=== PATIENT | female | born 1965 | race Caucasian/White ===

== ENCOUNTER 2017-02-19 10:19 | Emergency (ER) | payer OTHER ==
[2017-02-19] MEDS ORDERED: ACETAMINOPHEN 500 MG TAB PO ONE (10:29)
[2017-02-19] MEDS ORDERED: AZITHROMYCIN IV 500 MG in NS 250 ML IV ONE (10:51)
[2017-02-19] MEDS ORDERED: NS 1,000 ML IV ONE ×2 (10:51→11:53)
[2017-02-19 11:10] LABS: PLATELET COUNT 101 10^3/uL (150-400)
[2017-02-19] MEDS ORDERED: IBUPROFEN 600 MG TAB PO ONE (11:44)
[2017-02-19 11:50] VITALS: RESP 16
--- NOTE | 2017-02-19 13:23 | EDPHY ---
H & P Stated Complaint: Sinus congestion, fever, productive cough, fatigue x 5 days. Time Seen by Provider: 02/19/17 10:32 HPI/ROS: This patient presents 5 day history of coughing that has been nonproductive dry cough. She had coryza associated with her symptoms and fevers to 101 Sunday that improved for couple days prior to having recurrent fever up to 102.5 at home. She reports associated fatigue. She has retrobulbar headaches that improved with [id number] antipyretics as well and initially had a sore throat that has since resolved. Her brought her in by private vehicle. ROS: Constitutional: As per HPI HEENT: Mild ear pressure bilaterally. No other complaints. Pulmonary: No pleuritic pain or dyspnea. Cardiovascular: No chest pain heart palpitations or lightheadedness. GI: No nausea vomiting or abdominal pain. She does have decreased appetite. : No complaints Integumentary: No skin rash Endocrine: No complaints Musculoskeletal: Myalgias diffusely. Complete review of symptoms otherwise negative Source: Patient, Family (Patient's also provides history.) Exam Limitations: No limitations - Personal History LMP (Females 10-55): Post Menopausal Current Tetanus Diphtheria and Acellular Pertussis (TDAP): Yes Tetanus Vaccine Date: within 10 years - Medical/Surgical History Hx Asthma: No Hx Chronic Respiratory Disease: No Hx Diabetes: No Hx Cardiac Disease: No Hx Renal Disease: No Hx Cirrhosis: No Hx Alcoholism: No Hx HIV/AIDS: No Hx Splenectomy or Spleen Trauma: No Other PMH: Renal mediated HTN, hyperthyroidism. APPENDECTOMY CSECTION - Family History Significant Family History: No pertinent family hx - Social History Smoking Status: Never smoked Alcohol Use: Occasionally Drug Use: None - Physical Exam Exam: General Appearance: Alert, no distress. Eyes: Pupils equal and round no pallor or injection. ENT, Mouth: Mucous membranes dry. Ears: Clear bilaterally oropharynx: Clear with no erythema or exudates. No dysphonia. Respiratory: Mild rales at the bases that clear with deep breaths. Otherwise clear to auscultation bilaterally. Cardiovascular: Tachycardic with no murmur gallop or rub Gastrointestinal: Abdomen is soft and nontender, no masses, bowel sounds normal. Back: No CVA tenderness Neurological: GCS 15 with no focal deficits. Skin: Warm and dry, no rashes. Musculoskeletal: Neck is supple nontender. Extremities are symmetrical, full range of motion. Psychiatric: Mood and affect are normal DIFFERENTIAL DIAGNOSIS: After history and physical exam differential diagnosis was considered for influenza, pneumonia, bronchitis, bronchopneumonia Constitutional: Initial Vital Signs Temperature (C) 39.1 C H 02/19/17 10:23 Heart Rate 113 H 02/19/17 10:23 Respiratory Rate 18 02/19/17 10:23 Blood Pressure 131/72 H 02/19/17 10:23 O2 Sat (%) 94 02/19/17 10:23 O2 Delivery Mode Room Air Allergies/Adverse Reactions: Penicillins Allergy (Verified 02/19/17 10:28) Pt reports rash Sulfa (Sulfonamide Antibiotics) Allergy (Verified 02/19/17 10:28) Pt reports rash Home Medications: Medication Instructions Recorded Lisinopril 11/22/14 Benzonatate [Tessalon Pearles (RX)] 100 - 200 mg PO TID PRN #20 cap 02/19/17 Thyroid Medication 02/19/17 Medical Decision Making - Diagnostics Imaging Results: Imaging Impressions Chest X-Ray 02/19/17 10:52 Impression: Normal chest x-ray. Two view chest x-ray: No infiltrates or other abnormalities by my interpretation ED Course/Re-evaluation: IV normal saline bolus x2 L Zithromax 500 mg p.o. after initial negative influenza test. Ibuprofen Tylenol with defervesced since. Labs: Notable for an initial elevation of her venous lactate. After 2 L her repeat lactate is normal. Basic metabolic panel is normal. Initial rapid flu was negative. This is followed up by a influenza PCR which is positive for influenza B. Discussion: Patient presents with influenza associated with dehydration. She did get a dose of Zithromax after 1st influenza test was negative but suspecting influenza PCR study was sent which is positive. I counseled patient regarding this. She met septic criteria initially but with treatment her vital signs normalized and her venous lactate resolved to normal. Patient feels well time of discharge and not think has active sepsis at this time. Chest x-ray reveals no pneumonia. I think that she is safe for discharge home. Counseled her in some detail regarding influenza answered all of her questions and her 's questions. She understands need to return should she develop any significant worsening of her symptoms despite the treatment plan. - Data Points Laboratory Results: Laboratory Results 02/19/17 11:08 02/19/17 11:08 02/19/17 02/19/17 02/19/17 12:45 11:08 11:08 WBC 7.59 10^3/uL 10^3/uL (3.80-9.50) RBC 4.75 10^6/uL 10^6/uL (4.18-5.33) Hgb 14.4 g/dL g/dL (12.6-16.3) Hct 40.9 % % (38.0-47.0) MCV 86.1 fL fL (81.5-99.8) MCH 30.3 pg pg (27.9-34.1) MCHC 35.2 g/dL g/dL (32.4-36.7) RDW 11.7 % % (11.5-15.2) Plt Count 101 10^3/uL L 10^3/uL (150-400) MPV 9.6 fL fL (8.7-11.7) Neut % (Auto) 93.7 % H % (39.3-74.2) Lymph % (Auto) 4.1 % L % (15.0-45.0) [place] % (Auto) 1.8 % L % (4.5-13.0) Eos % (Auto) 0.0 % L % (0.6-7.6) Baso % (Auto) 0.0 % L % (0.3-1.7) Nucleat RBC Rel Count 0.0 % % (0.0-0.2) Absolute Neuts (auto) 7.11 10^3/uL H 10^3/uL (1.70-6.50) Absolute Lymphs (auto) 0.31 10^3/uL L 10^3/uL (1.00-3.00) Absolute Monos (auto) 0.14 10^3/uL L 10^3/uL (0.30-0.80) Absolute Eos (auto) 0.00 10^3/uL L 10^3/uL (0.03-0.40) Absolute Basos (auto) 0.00 10^3/uL L 10^3/uL (0.02-0.10) Absolute Nucleated RBC 0.00 10^3/uL 10^3/uL (0-0.01) Immature Gran % 0.4 % % (0.0-1.1) Immature Gran # 0.03 10^3/uL 10^3/uL (0.00-0.10) VBG Lactic Acid 1.1 mmol/L D mmol/L 2.5 mmol/L H mmol/L (0.7-2.1) (0.7-2.1) Sodium Potassium Chloride Carbon Dioxide Anion Gap BUN Creatinine Estimated GFR Glucose Calcium Nasal Influenza A PCR Nasal Influenza B PCR Influenza A,B Rapid 02/19/17 02/19/17 02/19/17 11:08 10:35 10:35 WBC RBC Hgb Hct MCV MCH MCHC RDW Plt Count MPV Neut % (Auto) Lymph % (Auto) [place] % (Auto) Eos % (Auto) Baso % (Auto) Nucleat RBC Rel Count Absolute Neuts (auto) Absolute Lymphs (auto) Absolute Monos (auto) Absolute Eos (auto) Absolute Basos (auto) Absolute Nucleated RBC Immature Gran % Immature Gran # VBG Lactic Acid Sodium 135 mEq/L mEq/L (134-144) Potassium 3.6 mEq/L mEq/L (3.5-5.2) Chloride 95 mEq/L L mEq/L (97-110) Carbon Dioxide 24 mEq/l mEq/l (22-31) Anion Gap 16 mEq/L mEq/L (8-16) BUN 17 mg/dL mg/dL (7-23) Creatinine 0.9 mg/dL mg/dL (0.6-1.0) Estimated GFR > 60 Glucose 168 mg/dL H mg/dL (70-100) Calcium 8.7 mg/dL mg/dL (8.5-10.4) Nasal Influenza A PCR NEGATIVE FOR FLU A (NEGATIVE) Nasal Influenza B PCR FLU B DETECTED (NEGATIVE) Influenza A,B Rapid NEGATIVE FOR FLU (NEGATIVE) Medications Given: Discontinued Medications Acetaminophen (Tylenol) 1,000 mg PO EDNOW ONE Stop: 02/19/17 10:30 Last Admin: 02/19/17 10:37 Dose: 1,000 mg Azithromycin 500 mg/ Sodium (Chloride) 255 mls @ 255 mls/hr IV EDNOW ONE PRN Reason: Protocol Stop: 02/19/17 11:50 Last Admin: 02/19/17 11:25 Dose: 255 mls Sodium Chloride (Ns) 1,000 mls @ 0 mls/hr IV ONCE ONE; Wide Open PRN Reason: Protocol Stop: 02/19/17 10:52 Last Admin: 02/19/17 11:03 Dose: 1,000 mls Sodium Chloride (Ns) 1,000 mls @ 0 mls/hr IV ONCE ONE; Wide Open PRN Reason: Protocol Stop: 02/19/17 11:54 Last Admin: 02/19/17 11:59 Dose: 1,000 mls Ibuprofen (Motrin) 600 mg PO EDNOW ONE Stop: 02/19/17 11:45 Last Admin: 02/19/17 11:47 Dose: 600 mg Departure - Departure Disposition: Home, Routine, Self-Care Clinical Impression: Influenza B, Dehydration Condition: Good Instructions: Influenza (ED) Additional Instructions: Diagnosis: Influenza B Plan: Ibuprofen Tylenol for fevers Drink plenty fluids Avoid contact with significant numbers of people until after your fever has resolved for 24 hr more Tessalon Perles if needed for cough prevents sleep Return for any significant worsening despite treatment plan. Referrals: Rachel Wheatley MD [Primary Care Provider] - As per Instructions Prescriptions: Benzonatate [Tessalon Pearles (RX)] 100 - 200 mg PO TID PRN #20 cap PRN Reason: cough
[2017-02-19 13:25] VITALS: PULSE 86; TEMP 98.4; O2SAT 94
[2017-02-19 13:50] VITALS: BP 107/84
== END 2017-02-19 13:50 | disposition home or self-care (01) ==
LOC: CED 10:19
DX: J10.1 Influenza due to other identified influenza virus with other respiratory manifestations (principal); E86.0 Dehydration; E86.9 Volume depletion, unspecified
CPT/HCPCS: 71020-PO; 80048-PO; 83605-PO; 85025-PO; 87400-PO; 96365; J0456

== ENCOUNTER → 2017-07-06 | Outpatient (CLI) | payer OTHER | LOC: FIMAGING 10:19 | PROVIDERS: ATTEND Internal Medicine Endocrinology, Diabetes & Metabolism | DX: E04.2 Nontoxic multinodular goiter (principal) ==